=== PATIENT | female | born 1940 | race Native Hawaiian/Other Pacific Islander ===

== ENCOUNTER 2016-10-17 09:50 | Emergency (ER) | payer MEDICARE ==
[2016-10-17 09:51] VITALS: BMI 23.3
[2016-10-17 09:58] VITALS: TEMP 98.3
--- NOTE | 2016-10-17 10:15 | C.PDOC ---
History Of Present Illness 76 y/o F c PMHx HTN, HLD, DM p/w L sided weakness and numbness since awakening this morning. Last time normal bedtime last night at 10pm. She notes that last night, she had an episode of diarrhea without bleeding. Denies fever. This morning she awoke and feels weak to the L arm and L leg. She reports normal feeling of strength to the R. She also notes L arm numbness to L sided neck. She complains of pain to the L lower leg, L shoulder, and L sided lumbar back. She reports an allergy to aspirin. Denies vomiting, dyspnea. Has never had these symptoms before. Time Seen by Provider: 10/17/16 10:10 Chief Complaint (Nursing): Weakness/Neurological Deficit Past Medical History Reviewed: Historical Data, Nursing Documentation, Vital Signs Vital Signs: Last Vital Signs Temp 98.3 F 10/17/16 09:56 Pulse 89 10/17/16 11:45 Resp 18 10/17/16 11:45 BP 156/81 H 10/17/16 11:45 Pulse Ox 99 10/17/16 11:45 - Medical History PMH: HTN Surgical History: No Surg Hx Family History: States: Unknown Family Hx - Social History Hx Tobacco Use: No Hx Alcohol Use: No Hx Substance Use: No Review Of Systems Except As Marked, All Systems Reviewed And Found Negative. Constitutional: Negative for: Fever Cardiovascular: Negative for: Chest Pain Physical Exam - Physical Exam Additional Physical Exam Comments: Constitutional: No acute distress. Head: Normocephalic. Atraumatic. Eyes: PERRL. EOMI. ENT: Moist mucous membranes. Neck: Supple. Cardiovascular: Regular rate. Radial pulse 2+ bilaterally. Chest: No tenderness. Respiratory: Clear to auscultation bilaterally. GI: Soft. Nontender. Nondistended. Back: No CVA tenderness. Musculoskeletal: No tenderness or swelling of extremities. Skin: No rash. Neurologic: Alert, no focal deficit. Oriented x 3. Cranial nerves II-XII intact. Sensation to light touch intact bilaterally. Motor 5/5 x 4. Finger to nose, heel to ortega, normal. ED Course And Treatment - Laboratory Results Result Diagrams: 10/17/16 11:42 10/17/16 11:42 O2 Sat by Pulse Oximetry: 99 (ra) Pulse Ox Interpretation: Normal Against Medical Advice - AMA Patient Left Against Medical Advice: The patient declines admission to the hospital and wishes to leave the Emergency Department. This action is against my medical advice. This decision was made with informed refusal. The patient was told that admission to the hospital is necessary. Explanation of the reasons why were discussed. The risks of leaving were explained to the patient and include, but are not limited to, worsening of known or currently unknown conditions, permanent disability and from undiagnosed or untreated conditions. The patient has the capacity to make this informed decision and understands my explanation of the current medical problem and risks of leaving. The patient voluntarily accepts these risks and signed an AMA form documenting our conversation. The patient was given the opportunity to ask questions and reconsider. The patient was encouraged to return to the Emergency Department at any time for further care. NIHSS Stroke Scale - Date/Time Evaluation Performed Date Performed: 10/17/16 Time Performed: 10:20 When Was NIHSS Performed: Baseline - How Severe is the Stoke Level of Consciousness: 0=Alert LOC to Questions: 0=Both comments correct LOC to commands: 0=Obeys both correctly Best Gaze: 0=Normal Visual: 0=No visual loss Facial: 0=Normal Motor Arm - Left: 0=No drift Motor Arm - Right: 0=No drift Motor Leg - Left: 0=No drift Motor Leg - Right: 0=No drift Limb Ataxia: 0=Absent Sensory: 0=Normal Best Language: 0=No aphasia Dysarthia: 0=Normal articulation Extinction & Inattention (Neglect): 0=Normal, no object Score: 0 Severity Of Stroke: 0= No Stroke rTPA Inclusion/Exclusion - Refusal of Treatment Patient Refused Treatment: No - Inclusion Criteria for Altepase Patient is 18 years or Older: Yes The Clinical Diagnosis of Ischemic Stroke That is Causing a Potentially Disabling Neurological Deficit: No Time of Onset is Well Established to be Less Than 270 Minute Before Treatment Would Begin: No Risk/Benefit Discussed With Patient/Family Member Present: Yes Medical Decision Making Medical Decision Making: Patient has no measurable deficit and is well out of window. Will perform CVA work up with CT Head but also possible viral syndrome, flu like illness? PMD Moussa EKG: normal sinus rhythm at 80 bpm, no ST/T wave changes, right bundle morphology. CT Head, Read by Emilee Toro MD: FINDINGS: HEMORRHAGE: No intracranial hemorrhage. BRAIN: Diffuse atrophy with prominence of the ventricles and sulci noted. No mass effect or edema. Atherosclerotic calcifications. Scattered white matter hypodensities, which are nonspecific, but often seen with chronic microvascular ischemic disease. Please note that MRI with diffusion imaging is more sensitive in the detection of acute ischemic event. VENTRICLES: No hydrocephalus. CALVARIUM: Unremarkable. PARANASAL SINUSES: Unremarkable as visualized. No significant inflammatory changes. MASTOID AIR CELLS: Unremarkable as visualized. No inflammatory changes. OTHER FINDINGS: None. IMPRESSION: Generalized atrophy. Nonspecific white matter changes. Chest X-Ray, Read by Karl Davis MD: FINDINGS: LUNGS: Biapical pleural thickening with upper lobe granulomatous changes. Chronic interstitial lung markings. Patchy left basilar airspace opacity. Small rounded calcific foci projecting over the left breast. Small nodular density at the right lung base. Additional small nodular density at the right costophrenic angle. PLEURA: No significant pleural effusion identified, no pneumothorax apparent. CARDIOVASCULAR: Calcification at the aortic knob. OSSEOUS STRUCTURES: No significant abnormalities. VISUALIZED UPPER ABDOMEN: Normal. OTHER FINDINGS: None. IMPRESSION: Biapical pleural thickening with upper lobe granulomatous changes. Chronic interstitial lung markings. Patchy left basilar airspace opacity. Small rounded calcific foci projecting over the left breast. Small nodular density at the right lung base. Additional small nodular density at the right costophrenic angle. At reassessment, the patient states her symptoms are completely gone and she would like to go home. I informed her that her symptoms are consistent with TIA and the risk of a CVA in the coming days that could cause or permanent disability. She understood these risks and wished to go home. Dr. Do states she will see him in his office. Disposition Discussed With : Danilo Do Doctor Will See Patient In The: Office - Disposition Referrals: Danilo Do MD [Staff Provider] - Disposition: HOME/ ROUTINE Disposition Time: 12:31 Condition: STABLE Instructions: Transient Ischemic Attack (ED) Forms: (AMA) Informed Refusal - Clinical Impression Clinical Impression: Hemiparesis
--- NOTE | 2016-10-17 11:03 | RAD ---
HISTORY: hemiparesis COMPARISON: No prior. FINDINGS: LUNGS: Biapical pleural thickening with upper lobe granulomatous changes. Chronic interstitial lung markings. Patchy left basilar airspace opacity. Small rounded calcific foci projecting over the left breast. Small nodular density at the right lung base. Additional small nodular density at the right costophrenic angle. PLEURA: No significant pleural effusion identified, no pneumothorax apparent. CARDIOVASCULAR: Calcification at the aortic knob. OSSEOUS STRUCTURES: No significant abnormalities. VISUALIZED UPPER ABDOMEN: Normal. OTHER FINDINGS: None. IMPRESSION: Biapical pleural thickening with upper lobe granulomatous changes. Chronic interstitial lung markings. Patchy left basilar airspace opacity. Small rounded calcific foci projecting over the left breast. Small nodular density at the right lung base. Additional small nodular density at the right costophrenic angle.
--- NOTE | 2016-10-17 11:26 | CT ---
PROCEDURE: CT HEAD WITHOUT CONTRAST. HISTORY: L sided weakness/numbness COMPARISON: None available. TECHNIQUE: Axial computed tomography images were obtained through the head/brain without intravenous contrast. Radiation dose: Total exam DLP = 727.02 MGy-cm. This CT exam was performed using one or more of the following dose reduction techniques: Automated exposure control, adjustment of the mA and/or kV according to patient size, and/or use of iterative reconstruction technique. FINDINGS: HEMORRHAGE: No intracranial hemorrhage. BRAIN: Diffuse atrophy with prominence of the ventricles and sulci noted. No mass effect or edema. Atherosclerotic calcifications. Scattered white matter hypodensities, which are nonspecific, but often seen with chronic microvascular ischemic disease. Please note that MRI with diffusion imaging is more sensitive in the detection of acute ischemic event. VENTRICLES: No hydrocephalus. CALVARIUM: Unremarkable. PARANASAL SINUSES: Unremarkable as visualized. No significant inflammatory changes. MASTOID AIR CELLS: Unremarkable as visualized. No inflammatory changes. OTHER FINDINGS: None. IMPRESSION: Generalized atrophy. Nonspecific white matter changes.
[2016-10-17 11:51] LABS: RBC URINE 1 /hpf (0-3); URINE BACTERIA RARE (<OCC); URINE BILIRUBIN NEGATIVE (NEGATIVE); URINE BLOOD NEGATIVE (NEGATIVE); URINE COLOR Straw (YELLOW); URINE GLUCOSE (UA) NORMAL (Normal); URINE KETONE NEGATIVE (NEGATIVE); URINE LEUKOCYTE ESTERASE TRACE Leu/uL (Negative); URINE PROTEIN NEGATIVE (NEGATIVE); URINE UROBILINOGEN NORMAL mg/dL (0.2-1.0); WBC URINE 2 /hpf (0-5)
[2016-10-17 11:53] LABS: BASO # 0.1 K/uL (0.0-0.2); BASO % 0.6 % (0.0-2.0); EOS # 0.1 K/uL (0.0-0.7); EOS % 0.6 % (0.0-4.0); HEMATOCRIT 41.2 % (34.0-47.0); LYMPH # 2.3 K/uL (1.0-4.3); MEAN CELL VOLUME 83.7 fL (81.0-99.0); MEAN CORPUSCULAR HEMOGLOBIN 27.1 pg (27.0-31.0); MEAN CORPUSCULAR HGB CONC 32.4 g/dL (33.0-37.0); MEAN PLATELET VOLUME 8.8 fL (7.2-11.7); MONO # 0.5 K/uL (0.0-0.8); MONO % 4.7 % (0.0-10.0); WHITE BLOOD COUNT 11.4 K/uL (4.8-10.8)
[2016-10-17 12:05] LABS: ALB/GLOB RATIO 1.3 (1.0-2.1); ALKALINE PHOSPHATASE 104 U/L (38-126); ALT/SGPT 40 U/L (9-52); AST/SGOT 33 U/L (14-36); BILIRUBIN,TOTAL 0.4 mg/dL (0.2-1.3); BLOOD UREA NITROGEN 16 mg/dL (7-17); CALCIUM 9.3 mg/dl (8.6-10.4); CARBON DIOXIDE 23 mmol/L (22-30); CHLORIDE 94 mmol/L (98-107); CHOLESTEROL 138 mg/dL (0-199); GFR AFRICAN-AMERICAN > 60; GLUCOSE,RANDOM 100 mg/dL (65-105); POTASSIUM 4.3 mmol/L (3.6-5.2); SODIUM 132 mmol/L (132-148); TOTAL PROTEIN 8.1 g/dL (6.3-8.3)
[2016-10-17] MEDS ORDERED: Sodium Chloride 0.9% 1,000 ML IV STA (12:12)
[2016-10-17 13:35] VITALS: BP 153/89; PULSE 92; RESP 13; O2SAT 100
--- NOTE | 2016-10-18 14:47 | CARD ---
APPROVED REPORT EKG Measurement Heart [id number] <Conclusion> Normal sinus rhythm Incomplete right bundle branch block Borderline ECG
== END 2016-10-17 13:35 | disposition left against medical advice (07) ==
LOC: C.ER 09:50
DX: G81.94 Hemiplegia, unspecified affecting left nondominant side (principal)